=== PATIENT | female | born 1950 | race Caucasian/White ===

== ENCOUNTER 2020-01-02 18:40 | Emergency (ER) | payer MEDICARE, SELFPAY ==
[2020-01-02 18:45] VITALS: BP 216/100; PULSE 98; RESP 17; TEMP 36.6; O2SAT 98; BMI 31.9
--- NOTE | 2020-01-02 19:29 | PC.NURSE ---
Pt states that she began to experience R upper tooth pain yesterday and it has become worse today. Slight swelling noted to R Upper jaw. No upper face, ear, or neck pain. Afebrile.
[2020-01-02] MEDS: PENICILLIN VK 250 MG TABLET 500 MG PO (20:08)
[2020-01-02] MEDS: CODEINE/ACETAMINOPHEN 30/300 TABLET 1 TAB PO (20:08)
[2020-01-02] MEDS: ONDANSETRON 4 MG ODT SL (20:08)
--- NOTE | 2020-01-02 20:34 | ED.DENTAL ---
HPI - Dental/Oral <AR Thompson - Last Filed: 01/02/20 21:03> General Chief complaint: Dental/Oral Stated complaint: tooth ache, thinks infected Time Seen by Provider: 01/02/20 19:37 Source: patient Mode of arrival: Ambulatory Limitations: no limitations History of Present Illness HPI Narrative: The patient is a 69-year-old female nonsmoker with history of dental work presents with a chief complaint of a possible dental infection. She notes that she started having pain in her right upper 3rd molar yesterday, today got much worse and she feels a bad taste in her mouth coming from the area. She denies any fevers nausea or vomiting. Overall she feels tired, has not taken anything for pain today. She denies any muscle aches or chills. She does have has some fillings and a cap in the area, no recent dental procedures. No recent antibiotics. Related Data Previous Rx's Medication Instructions Recorded acetaminophen-codeine 1 tab PO Q4-6H PRN #10 tab 01/02/20 ondansetron 4 mg PO Q6H PRN #14 tab 01/02/20 penicillin V potassium 500 mg PO QID 10 Days #40 tab 01/02/20 Allergies Allergy/AdvReac Type Severity Reaction Status Date / Time No Known Drug Allergies Allergy Verified 01/02/20 19:06 Review of Systems <AR Thompson - Last Filed: 01/02/20 21:03> Review of Systems Narrative: GENERAL: Denies chills, fatigue, malaise, fever, sweats. HEENT: See HPI RESPIRATORY: Denies dyspnea, cough, wheezing, hemoptysis, sputum. CARDIOVASCULAR: Denies chest pain, palpitations, orthopnea, edema, GASTROINTESTINAL: Denies nausea, vomiting, abdominal pain, diarrhea, constipation, melena. : Denies dysuria, frequency, incontinence, hematuria, urinary retention. MUSCULOSKELETAL: denies weakness, joint pain, or bony pain SKIN: Denies rash, skin lesions, or other NEUROLOGIC: Denies weakness, headache, numbness, change in speech, confusion, seizures, incoordination. PSYCHIATRIC: No concerning psychosocial issues. 12 point review of systems is negative except for those stated above Patient History <AR Thompson - Last Filed: 01/02/20 21:03> Social History Smoking Status: Never smoker Smoking Status: Never smoker alcohol intake frequency: other Substance Use Type: does not use Exam <LEO Thompson - Last Filed: 01/02/20 21:03> Narrative Exam Narrative: GENERAL: This is a well-nourished, well-developed patient, in no acute distress HEAD: Atraumatic. Normocephalic. No temporal or scalp tenderness. EYES: Pupils equal round and reactive. Extraocular motions intact. No scleral icterus. No injection or drainage. ENT: Nose without bleeding, purulent drainage or septal hematoma. Throat without erythema, tonsillar hypertrophy or exudate. Uvula midline. Airway patent. Right upper 3rd molar with surrounding erythema, pain to palpation, no palpable abscess or fluctuance NECK: Trachea midline. No JVD or lymphadenopathy. Supple, nontender, no meningeal signs. CARDIOVASCULAR: Regular rate and rhythm RESPIRATORY: Clear to auscultation. Breath sounds equal bilaterally. No wheezes, rales, or rhonchi. No cough. No increased respiratory effort. No accessory muscle use. GASTROINTESTINAL: Abdomen soft, non-tender, nondistended. No hepato-splenomegaly, or palpable masses. No guarding. EXTREMITIES: No clubbing, cyanosis, or edema. No joint tenderness, effusion, or edema noted. BACK: Nontender without deformity or crepitance. No flank tenderness. NEURO: AOx3. SKIN: No rash or erythema. Initial Vital Signs Initial Vital Signs: Vital Signs Temperature 98 F 01/02/20 18:45 Pulse Rate 98 H 01/02/20 18:45 Respiratory Rate 17 01/02/20 18:45 Blood Pressure 216/100 H 01/02/20 18:45 Pulse Oximetry 98 01/02/20 18:45 <Ajith Last DO - Last Filed: 01/03/20 01:31> Initial Vital Signs Initial Vital Signs: Vital Signs Temperature 98 F 01/02/20 18:45 Pulse Rate 98 H 01/02/20 18:45 Respiratory Rate 17 01/02/20 18:45 Blood Pressure 216/100 H 01/02/20 18:45 Pulse Oximetry 98 01/02/20 18:45 Scores <LEO Thompson - Last Filed: 01/02/20 21:03> GCS Nia coma scale eye opening: Spontaneous Nia coma scale verbal response: Orientated [place] coma scale motor response: Obey commands Nia coma scale total score: 15 Course <LEO Thompson - Last Filed: 01/02/20 21:03> Orders Ordered: Discontinued Medications Acetaminophen/Codeine Phosphate (Tylenol #3) 1 tab PO NOW ONE Stop: 01/02/20 20:00 Last Admin: 01/02/20 20:08 Dose: 1 tab Documented by: STEPHANIE Ondansetron HCl (Zofran Odt) 4 mg SL NOW ONE Stop: 01/02/20 20:00 Last Admin: 01/02/20 20:08 Dose: 4 mg Documented by: STEPHANIE Penicillin V Potassium (Veetids) 500 mg PO NOW ONE Stop: 01/02/20 20:00 Last Admin: 01/02/20 20:08 Dose: 500 mg Documented by: STEPHANIE Vital Signs Vital signs: Vital Signs - 8 hr 01/02/20 18:45 Temperature 98 F Pulse Rate 98 H Respiratory Rate 17 Blood Pressure 216/100 H Pulse Oximetry 98 <Ajith Last DO - Last Filed: 01/03/20 01:31> Orders Ordered: Discontinued Medications Acetaminophen/Codeine Phosphate (Tylenol #3) 1 tab PO NOW ONE Stop: 01/02/20 20:00 Last Admin: 01/02/20 20:08 Dose: 1 tab Documented by: STEPHANIE Ondansetron HCl (Zofran Odt) 4 mg SL NOW ONE Stop: 01/02/20 20:00 Last Admin: 01/02/20 20:08 Dose: 4 mg Documented by: STEPHANIE Penicillin V Potassium (Veetids) 500 mg PO NOW ONE Stop: 01/02/20 20:00 Last Admin: 01/02/20 20:08 Dose: 500 mg Documented by: STEPHANIE Vital Signs Vital signs: Vital Signs - 8 hr 01/02/20 18:45 Temperature 98 F Pulse Rate 98 H Respiratory Rate 17 Blood Pressure 216/100 H Pulse Oximetry 98 MDM - Dental/Oral <LEO Thompson - Last Filed: 01/02/20 21:03> MDM Narrative Medical decision making narrative: The patient is a 6-year-old female who presents with dental infection. She appears well nontoxic, is afebrile in the emergency department. She has no drug allergies, so antibiotics were initiated with penicillin VK, Tylenol 3 for pain and Zofran for nausea. The patient feels much improved after the above-stated therapies. I discussed at length the importance of follow-up with primary care provider as well as her dentist. Discussed coming back to the emergency department for acute concerns such as high fevers or inability keep down fluids. Patient has no questions or concerns upon discharge and states understanding return precautions as well as follow-up care. Discharge Plan Departure Patient Disposition: Home Clinical Impression: Dental infection Discharge Date/Time: 01/02/20 21:01 Instructions: DI for Tooth Abscess, DI for Dental Pain Activity Restrictions/Additional Instructions: Thank you for trusting us with your care today. I sent 3 prescriptions to [facility]. One is for pain, 1 is for nausea, the other is an antibiotic. Please take your antibiotic with probiotic or yogurt. Please follow-up with a dentist and her primary care provider I have given you a prescription of a narcotic for pain. Be aware that this can be constipating and sedating. I encouraged taking with a stool softener, pushing fluids and fiber. Do not take and drive, operate heavy machinery, etc. Do not combine it with any other sedating substances such as alcohol. The combination of narcotics and alcohol and/or other sedatives can be lethal. Please come back to the emergency department for any acute concerns such as high fevers or inability keep down fluids. Prescriptions: New penicillin V potassium 500 mg tablet 500 mg PO QID 10 Days Qty: 40 RF: 0 ondansetron 4 mg tablet,disintegrating 4 mg PO Q6H PRN (Reason: nausea and vomiting) Qty: 14 RF: 0 acetaminophen-codeine 300-30 mg tablet 1 tab PO Q4-6H PRN (Reason: pain) Qty: 10 RF: 0 <Ajith Last DO - Last Filed: 01/03/20 01:31> Cosign ED Attending Cosraphaelature Attestation: I was immediately available in the department for consultation. This documentation has been reviewed and I agree with assessment and plan. Supervised by Ajith Last DO
== END 2020-01-02 21:01 | disposition home or self-care (01) ==
PROVIDERS: Emergency Provider Nurse Practitioner Family
DX: K04.7 Periapical abscess without sinus (principal)
CPT/HCPCS: 99283

== ENCOUNTER → 2020-05-08 07:50 | Outpatient (CLI) | payer MEDICARE, SELFPAY ==
[2020-05-08] MEDS: COVID-19 VACC #1, MRNA(MOD) 100 MCG/0.5 ML VIAL IM (07:55)
== END ==
PROVIDERS: Visit Provider Internal Medicine
DX: Z23 Encounter for immunization (principal)
CPT/HCPCS: 0011A; 91301

== ENCOUNTER → 2020-06-04 07:58 | Outpatient (CLI) | payer MEDICARE, SELFPAY ==
[2020-06-04] MEDS: COVID-19 VACC #2, MRNA(MOD) 100 MCG/0.5 ML VIAL IM (08:05)
== END ==
PROVIDERS: Visit Provider Internal Medicine
DX: Z23 Encounter for immunization (principal)
CPT/HCPCS: 0012A; 91301